=== PATIENT | male | born 1985 | race Caucasian/White ===

== ENCOUNTER 2021-06-22 20:35 | Inpatient (IN) | payer BC, MEDICAID, SELFPAY ==
[~2021-06-22] VITALS: Ht 172.7 cm; Wt 69.6 kg
[2021-06-22] MEDS ORDERED: HYDR100T PO (21:04)
[2021-06-22] MEDS ORDERED: HALO20TA PO (21:04)
[2021-06-22] MEDS ORDERED: CLONI1TA PO (21:04)
[2021-06-22] MEDS ORDERED: HALD100I2 IM (21:04)
[2021-06-22] MEDS ORDERED: TRAZ1TAB14 PO (21:04)
[2021-06-22] MEDS ORDERED: SYMB80INH INH (21:06)
[2021-06-23] VITALS (8 sets, daily range): BP systolic 104–121; BP diastolic 55–81
[2021-06-23] MEDS ORDERED: HYDR1TAB33 PO (00:08)
[2021-06-23] MEDS ORDERED: HALO10TA20 PO (00:08)
[2021-06-23] MEDS ORDERED: CLON0.2T PO (00:08)
[2021-06-23] MEDS ORDERED: TRAZ1TAB14 PO (00:08)
[2021-06-23] MEDS ORDERED: HOME MED LIST COMPLETE! XX SCH (00:10)
[2021-06-23] MEDS ORDERED: MAALOX 30 ML SUSP *UDC PO PRN (02:30)
[2021-06-23] MEDS ORDERED: OLANZapine 5 MG TAB PO PRN (02:30)
[2021-06-23] MEDS ORDERED: ACETAMINOPHEN TAB 650MG DOSE (2X325MG) PO PRN (02:30)
[2021-06-23] MEDS ORDERED: MOM 30ML SUSPENSION UDC PO PRN (02:30)
--- NOTE | 2021-06-23 04:13 | MHIPNPDOC ---
[facility] Progress Note Progress Note DATE OF SERVICE: 06/23/21 Communicated with PSA patient is to be admitted. Patient is a transfer from [place], [place]. Has suicidal ideation with plan to electrocute himself. Vital Signs Vital Signs Date Time Temp Pulse Resp B/P (MAP) Pulse Ox O2 Delivery O2 Flow Rate FiO2 06/23/21 03:25 96.7 56 18 94/53 (67) 96 06/22/21 20:50 Room Air Current Medications Current Medications Medications (Trade) Dose Ordered Sig/Oscar Route PRN Reason Start Time Stop Time Status Last Admin Dose Admin Acetaminophen (Tylenol Tab) 650 mg Q6HP PRN PO HEADACHE or MILD DISCOMFORT 06/23/21 02:30 Al Hydrox/Mg Hydrox/Simethicone (Mylanta) 30 ml Q4HP PRN PO HEARTBURN/INDIGESTION 06/23/21 02:30 Home Med (Home Med List Complete!) ASDIRECTED XX 06/23/21 00:10 06/23/21 00:13 DC Magnesium Hydroxide (Milk Of Magnesia) 30 ml DAILYPRN PRN PO CONSTIPATION 06/23/21 02:30 Olanzapine (ZyPREXA) 5 mg Q6HP PRN PO Anxiety/agitation 06/23/21 02:30 Trazodone HCl (Desyrel) 50 mg QHSP PRN PO INSOMNIA 06/23/21 02:30 Allergies Coded Allergies: Cat Dander (Verified Allergy, Unknown, 06/22/21) FISH (Verified Allergy, Unknown, 06/22/21) POLLEN (Verified Allergy, Unknown, 06/22/21) ANASTACIO MELGAR MD Jun 23, 2021 04:13
[2021-06-23] MEDS ORDERED: PROPRANOLOL 10 MG TAB PO SCH (09:00)
--- NOTE | 2021-06-23 11:35 | MHHPE ---
[facility] HISTORY AND PHYSICAL DATE OF ADMISSION: 06/23/2021 IDENTIFYING DATA: He is a 35-year-old, single, homeless male who was brought from a drug rehabilitation facility in [place], as he was expressing suicidal thoughts. HISTORY OF PRESENT ILLNESS: Patient has been staying in rehabilitation facility for the last two weeks. He developed suicidal thoughts with a plan to electrocute himself. He wanted to put his tongue in an outlet socket. Patient has a long history of mental illness with multiple psychiatric hospitalizations with a diagnosis of bipolar disorder. Also, he has alcohol use disorder. Currently, he complains of depression with severe depressed mood, hopelessness, decreased appetite, low energy. Patient has a history of imelda, wherein he cannot sit still, keeps walking about, racing thoughts, unable to sleep, pressured speech. Patient also has a history of panic disorder. He has been diagnosed with schizoaffective disorder. He has a history of auditory hallucinations, voices making commentary in his head, but they are not commanding in nature. Even when he is not using drugs, he has these hallucinations. He also has paranoid thoughts that people are after him to hurt him. Current stressors are homelessness. CURRENT MEDICATIONS: - Haldol Decanoate 100 mg intramuscular (IM) every four weeks - Haldol 10 mg by mouth at hour of sleep - trazodone 50 mg at bedtime as needed PAST PSYCHIATRIC HISTORY: Patient has history of multiple psychiatric hospitalizations. The first time he saw a psychiatrist was when he was 20 years old. At that time, he was diagnosed with bipolar disorder. He has had more than 20 psychiatric hospitalizations afterwards. The last hospitalization was about two years ago in [place]. SUIDICAL HISTORY: Patient has attempted suicide by jumping out of a window in 2006 and another two attempts by overdosing on pills in 2010 and 2011. There is a history of self-harm by burning, which he has not done for a long time. Denies any history of homicidal ideas. DRUG AND ALCOHOL HISTORY: Patient reports he has a history of alcohol dependence for about the last 15 years, drinks every day. Cannabis use every day. MEDICAL HISTORY: Denies medical problems. FAMILY HISTORY: Unable to elicit, as patient was drowsy. PERSONAL HISTORY: Patient was drowsy, was unable to elicit. MENTAL STATUS EXAMINATION: Casually dressed, partially cooperative. Made poor eye contact. Speech: Rate, rhythm, volume is good. Thought process: Linear and goal-directed. Thought content: Complains of suicidal thoughts without plans. He has auditory hallucinations which are commentaries in his head. He has some paranoid delusions. Insight and judgment is poor. Impulse control is questionable. REVIEW OF SYSTEMS: CONSTITUTIONAL: No fever. No night sweats. HEENT: Negative for epistaxis or headache. RESPIRATORY: No cough or shortness of breath. CARDIOVASCULAR: Negative for chest pain or dyspnea. GASTROINTESTINAL: No abdominal pain. No change in bowel habits. GENITOURIARY: No dysuria. No trouble voiding. NEUROLGOCIAL: Negative for gait disturbances; however, he does have some tremors of his legs. Negative for numbness or tingling. DIAGNOSES: 1. Schizoaffective disorder, bipolar type. 2. Alcohol use disorder. 3. Anxiety disorder, not otherwise specified. PLAN: 1. Admit the patient to inpatient mental health unit (IM). 2. Patient will be placed on suicide precautions and 15 minute checks. 3. Patient will be followed up by the fuels sales representative for medical needs. 4. Patient will be followed up by case management and psychosocial rehabilitation counselor. 5. Patient will participate in appropriate activities, individual, group and milieu therapies. 6. Continue current medications of Haldol Decanoate 100 mg intramuscular (IM) every four weeks, Haldol 10 mg by mouth in the evening. I will place him on Zyprexa Zydis 5 mg every 8 hours as needed for hallucinations. Add propranolol 10 mg three times a day for restlessness. ESTIMATED LENGTH OF STAY: Five to seven days. TIME SPENT: Forty-five minutes. KRISTINA
[2021-06-23 15:16] LABS: HEMATOCRIT 49.6 % (42.0-52.0); HEMOGLOBIN 16.4 g/dl (13.5-17.5); MEAN CORPUSCULAR HEMOGLOBIN 29.6 pg (27.0-33.0); MEAN CORPUSCULAR HGB CONC 33.1 g/dl (32.0-36.5); MEAN CORPUSCULAR VOLUME 89.5 fl (80.0-96.0); PLATELET COUNT, AUTOMATED 373 10^3/uL (150-450); RED BLOOD COUNT 5.54 10^6/uL (4.30-6.10); WHITE BLOOD COUNT 9.1 10^3/uL (4.0-10.0)
[2021-06-23 15:53] LABS: ALBUMIN 4.2 GM/DL (3.2-5.2); ALT/SGPT 32 U/L (12-78); BILIRUBIN,TOTAL 0.8 MG/DL (0.2-1.0); BLOOD UREA NITROGEN 8 MG/DL (7-18); CALCIUM LEVEL 9.4 MG/DL (8.5-10.1); CARBON DIOXIDE LEVEL 29 MEQ/L (21-32); CHLORIDE LEVEL 105 MEQ/L (98-107); CREATININE FOR GFR 1.19 MG/DL (0.70-1.30); FREE THYROXINE INDEX 3.6 % (1.4-3.8); GLOMERULAR FILTRATION RATE > 60.0 (>60); GLUCOSE, FASTING 104 MG/DL (70-100); MAGNESIUM LEVEL 2.2 MG/DL (1.8-2.4); POTASSIUM SERUM 4.6 MEQ/L (3.5-5.1); SODIUM LEVEL 138 MEQ/L (136-145); T UPTAKE 28 % (33-40); TOTAL PROTEIN 7.7 GM/DL (6.4-8.2)
--- NOTE | 2021-06-23 16:42 | ECGEPIP ---
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
[2021-06-23] MEDS: OLANZapine ORAL DISINTEGRATING TAB 5MG PO PRN (18:51)
[2021-06-23] MEDS ORDERED: LORazepam 2 MG TAB PO PRN (19:35)
[2021-06-23] MEDS: THIAMINE 100 MG TAB PO SCH (20:31)
[2021-06-23] MEDS: FOLIC ACID 1 MG TAB PO SCH (20:31)
[2021-06-23] MEDS: traZODone 50 MG TAB PO PRN (20:31)
[2021-06-23] MEDS: MULTIVITAMINS/MINERALS THERAP 1 TAB PO SCH (20:31)
[2021-06-24 06:07] VITALS: BP 121/73
[2021-06-24] MEDS ORDERED: INFLUENZA QUADRIVALENT PF VACCINE 0.5ML SYRINGE IM ONE (09:00)
[2021-06-24] MEDS: THIAMINE 100 MG TAB PO SCH (09:43)
[2021-06-24] MEDS: FOLIC ACID 1 MG TAB PO SCH (09:43)
[2021-06-24] MEDS: MULTIVITAMINS/MINERALS THERAP 1 TAB PO SCH (09:43)
[2021-06-24 09:57] VITALS: BP 111/72
--- NOTE | 2021-06-24 14:36 | MHIPNPDOC ---
[facility] Progress Note Progress Note DATE OF SERVICE: 06/24/21 Subjective:" I still have hallucinations and suicidal thoughts, not as severe, I would like to go to a rehab". : Objective : patient has been staying in rehabilitation facilityfor the last two weeks. He developed suicidal thoughts with a plan to electrocute himself. He wanted to put his tongue in an outlet socket. Patient has a long history of mental illness with multiple psychiatric hospitalizations with a diagnosis of bipolar disorder. Also, he has alcohol use disorder. Currently, he complains of depression with severe depressed mood, hopelessness, decreased appetite, low energy. Patient has a history of imelda, wherein he cannot sit still, keeps walking about, racing thoughts, unable to sleep, pressured speech. Patient also has a history of panic disorder. He has been diagnosed with schizoaffective disorder. He has a history of auditory hallucinations, voices making commentary in his head, but they are not commanding in nature. Even when he is not using drugs, he has these hallucinations. He also has paranoid thoughts that people are after him to hurt him. Current stressors are homelessness. Patient currently, he is less drowsy however complains of hallucinations and some vague suicidal thoughts without plans, He prefers to go to a rehab. CURRENT MEDICATIONS: - Haldol Decanoate 100 mg intramuscular (IM) every four weeks - Haldol 10 mg by mouth at hour of sleep - trazodone 50 mg at bedtime as needed Mental status examination: Dressed in hospital gown, sitting up in his bed reports he still continues to have auditory hallucinations which are not c ommanding in nature He also has suicidal thoughts which are minimal he is alert oriented to time luana ce and person, mood is depressed affect is sad and constricted , thought process linear Goal-directed insight and judgment are poor, Assessment and plan patient continues to be psychotic and has got suicidal thoughts, I would like to place him on, Zyprexa 5 mg at night In addition to Haldol 10 mg at night. Estimated length of stay 4 to 5 days Time spent is 25 minutes Vital Signs Vital Signs Date Time Temp Pulse Resp B/P (MAP) Pulse Ox O2 Delivery O2 Flow Rate FiO2 06/24/21 09:57 82 16 111/72 (85) 97 Room Air 06/24/21 06:07 98.1 Laboratory Data 24H Labs Laboratory Tests 2 06/23/21 14:46: Anion Gap 4L, Glomerular Filtration Rate > 60.0, Calcium Level 9.4, Magnesium Level 2.2, Total Bilirubin 0.8, Aspartate Amino Transf (AST/SGOT) 17, Alanine Aminotransferase (ALT/SGPT) 32, Alkaline Phosphatase 108, Total Protein 7.7, Albumin 4.2, Albumin/Globulin Ratio 1.2, Thyroid Stimulating Hormone (TSH) 1.720, Free Thyroxine Index 3.6, Thyroxine (T4) 13.0H, Triiodothyronine (T3) Uptake 28L 06/23/21 14:47: Nucleated Red Blood Cells % (auto) 0.0 CBC/BMP Laboratory Tests 06/23/21 14:46 06/23/21 14:47 Current Medications Current Medications Medications (Trade) Dose Ordered Sig/Oscar Route PRN Reason Start Time Stop Time Status Last Admin Dose Admin Acetaminophen (Tylenol Tab) 650 mg Q6HP PRN PO HEADACHE or MILD DISCOMFORT 06/23/21 02:30 Al Hydrox/Mg Hydrox/Simethicone (Mylanta) 30 ml Q4HP PRN PO HEARTBURN/INDIGESTION 06/23/21 02:30 Folic Acid (Folic Acid) 1 mg DAILY PO 06/23/21 09:00 06/24/21 09:43 Haloperidol (Haldol) 10 mg QHS PO 06/23/21 21:00 06/23/21 20:31 Home Med (Home Med List Complete!) ASDIRECTED XX 06/23/21 00:10 06/23/21 00:13 DC Lorazepam (Ativan) 2 mg ASDIRECTED PRN PO SEE PROTOCOL 06/23/21 19:35 Magnesium Hydroxide (Milk Of Magnesia) 30 ml DAILYPRN PRN PO CONSTIPATION 06/23/21 02:30 Multivitamins (Theragram-M) 1 tab DAILY PO 06/23/21 09:00 06/24/21 09:43 Olanzapine (ZyPREXA ZYDIS) 5 mg Q6HP PRN PO ANXIETY/AGITATION 06/23/21 09:35 06/23/21 18:51 Olanzapine (ZyPREXA) 5 mg Q6HP PRN PO Anxiety/agitation 06/23/21 02:30 06/23/21 09:38 DC 06/23/21 04:24 Olanzapine (ZyPREXA) 5 mg QHS PO 06/24/21 21:00 UNV Propranolol HCl (Inderal) 10 mg TID PO 06/23/21 09:00 06/23/21 11:45 DC 06/23/21 10:04 Thiamine HCl (Thiamine HCl) 100 mg DAILY PO 06/23/21 09:00 06/24/21 09:43 Trazodone HCl (Desyrel) 50 mg QHSP PRN PO INSOMNIA 06/23/21 02:30 06/23/21 20:31 Allergies Coded Allergies: Cat Dander (Verified Allergy, Unknown, 06/22/21) FISH (Verified Allergy, Unknown, 06/22/21) POLLEN (Verified Allergy, Unknown, 06/22/21) CASEY BLAIR MD Jun 24, 2021 14:36
[2021-06-24 16:00] VITALS: BP 121/77
[2021-06-24] MEDS: OLANZapine ORAL DISINTEGRATING TAB 5MG PO PRN (18:16)
[2021-06-24] MEDS: traZODone 50 MG TAB PO PRN (20:14)
[2021-06-24] MEDS: OLANZapine 5 MG TAB PO SCH (20:14)
[2021-06-25 06:07] VITALS: BP 115/71
[2021-06-25] MEDS: MULTIVITAMINS/MINERALS THERAP 1 TAB PO SCH (09:39)
[2021-06-25] MEDS: THIAMINE 100 MG TAB PO SCH (09:39)
[2021-06-25] MEDS: FOLIC ACID 1 MG TAB PO SCH (09:39)
--- NOTE | 2021-06-25 10:44 | MHIPNPDOC ---
[facility] Progress Note Progress Note DATE OF SERVICE: 06/25/21 Subjective:" Patient denies any hallucinations he denies any suicidal homicidal thoughts However patient is mostly seen laying in his bed. He prefers to go to another rehab. : Objective : patient has been staying in rehabilitation facilityfor the last two weeks. He developed suicidal thoughts with a plan to electrocute himself. He wanted to put his tongue in an outlet socket. Patient has a long history of mental illness with multiple psychiatric hospitalizations with a diagnosis of bipolar disorder. Also, he has alcohol use disorder. Currently, he complains of depression with severe depressed mood, hopelessness, decreased appetite, low energy. Patient has a history of imelda, wherein he cannot sit still, keeps walking about, racing thoughts, unable to sleep, pressured speech. Patient also has a history of panic disorder. He has been diagnosed with schizoaffective disorder. He has a history of auditory hallucinations, voices making commentary in his head, but they are not commanding in nature. Even when he is not using drugs, he has these hallucinations. He also has paranoid thoughts that people are after him to hurt him. Current stressors are homelessness. Patient currently, he is less drowsy however complains of hallucinations and some vague suicidal thoughts without plans, He prefers to go to a rehab. CURRENT MEDICATIONS: - Haldol Decanoate 100 mg intramuscular (IM) every four weeks - Haldol 10 mg by mouth at hour of sleep - trazodone 50 mg at bedtime as needed Mental status examination: Dressed in hospital gown, sitting up in his bed reports he denies any auditory visual hallucinations, denies any suicidal homicidal ideas. alert oriented to time place and person, mood is depressed affect is sad and constricted , thought process linear Goal-directed insight and judgment are poor, Assessment and plan patient continues to be psychotic and has got suicidal thoughts, I would like to place him on, Zyprexa 5 mg at night In addition to Haldol 10 mg at night. Estimated length of stay 4 to 5 days Time spent is 25 minutes Vital Signs Vital Signs Date Time Temp Pulse Resp B/P (MAP) Pulse Ox O2 Delivery O2 Flow Rate FiO2 06/25/21 06:07 97.3 81 16 115/71 (86) 99 Room Air Current Medications Current Medications Medications (Trade) Dose Ordered Sig/Oscar Route PRN Reason Start Time Stop Time Status Last Admin Dose Admin Acetaminophen (Tylenol Tab) 650 mg Q6HP PRN PO HEADACHE or MILD DISCOMFORT 06/23/21 02:30 Al Hydrox/Mg Hydrox/Simethicone (Mylanta) 30 ml Q4HP PRN PO HEARTBURN/INDIGESTION 06/23/21 02:30 Folic Acid (Folic Acid) 1 mg DAILY PO 06/23/21 09:00 06/25/21 09:39 Haloperidol (Haldol) 10 mg QHS PO 06/23/21 21:00 06/24/21 20:14 Home Med (Home Med List Complete!) ASDIRECTED XX 06/23/21 00:10 06/23/21 00:13 DC Lorazepam (Ativan) 2 mg ASDIRECTED PRN PO SEE PROTOCOL 06/23/21 19:35 Magnesium Hydroxide (Milk Of Magnesia) 30 ml DAILYPRN PRN PO CONSTIPATION 06/23/21 02:30 Multivitamins (Theragram-M) 1 tab DAILY PO 06/23/21 09:00 06/25/21 09:39 Olanzapine (ZyPREXA ZYDIS) 5 mg Q6HP PRN PO ANXIETY/AGITATION 06/23/21 09:35 06/24/21 18:16 Olanzapine (ZyPREXA) 5 mg Q6HP PRN PO Anxiety/agitation 06/23/21 02:30 06/23/21 09:38 DC 06/23/21 04:24 Olanzapine (ZyPREXA) 5 mg QHS PO 06/24/21 21:00 06/24/21 20:14 Propranolol HCl (Inderal) 10 mg TID PO 06/23/21 09:00 06/23/21 11:45 DC 06/23/21 10:04 Thiamine HCl (Thiamine HCl) 100 mg DAILY PO 06/23/21 09:00 06/25/21 09:39 Trazodone HCl (Desyrel) 50 mg QHSP PRN PO INSOMNIA 06/23/21 02:30 06/24/21 20:14 Allergies Coded Allergies: Cat Dander (Verified Allergy, Unknown, 06/22/21) FISH (Verified Allergy, Unknown, 06/22/21) POLLEN (Verified Allergy, Unknown, 06/22/21) CASEY BLAIR MD Jun 25, 2021 10:44
[2021-06-25] MEDS ORDERED: BENZTROPINE 0.5 MG TAB PO PRN (14:15)
[2021-06-25] MEDS ORDERED: BENZTROPINE 0.5 MG TAB PO ONE (14:15)
[2021-06-25] MEDS ORDERED: BENZTROPINE 1 MG TAB PO ONE (14:30)
[2021-06-25 16:35] VITALS: BP 132/79
[2021-06-25] MEDS: BENZTROPINE 0.5 MG TAB PO SCH (20:29)
[2021-06-25] MEDS: OLANZapine 5 MG TAB PO SCH (20:29)
[2021-06-25] MEDS: traZODone 50 MG TAB PO PRN (20:29)
[2021-06-25] MEDS ORDERED: BENZTROPINE 0.5 MG TAB PO SCH (21:00)
[2021-06-26 06:15] VITALS: BP 104/56
[2021-06-26] MEDS: BENZTROPINE 0.5 MG TAB PO SCH (09:30)
[2021-06-26] MEDS: FOLIC ACID 1 MG TAB PO SCH (09:30)
[2021-06-26] MEDS: MULTIVITAMINS/MINERALS THERAP 1 TAB PO SCH (09:30)
[2021-06-26] MEDS: THIAMINE 100 MG TAB PO SCH (09:30)
--- NOTE | 2021-06-26 09:57 | MHIPNPDOC ---
[facility] Progress Note Progress Note DATE OF SERVICE: 06/26/21 Subjective:" Patient denies any hallucinations he denies any suicidal homicidal thoughts However patient is mostly seen laying in his bed. He prefers to go to another rehab. Patient had akathisia, he was placed on Cogentin 1 mg twice daily reports he is better he is not restless. : Objective : patient has been staying in rehabilitation facilityfor the last two weeks. He developed suicidal thoughts with a plan to electrocute himself. He wanted to put his tongue in an outlet socket. Patient has a long history of mental illness with multiple psychiatric hospitalizations with a diagnosis of bipolar disorder. Also, he has alcohol use disorder. Currently, he complains of depression with severe depressed mood, hopelessness, decreased appetite, low energy. Patient has a history of imelda, wherein he cannot sit still, keeps walking about, racing thoughts, unable to sleep, pressured speech. Patient also has a history of panic disorder. He has been diagnosed with schizoaffective disorder. He has a history of auditory hallucinations, voices making commentary in his head, but they are not commanding in nature. Even when he is not using drugs, he has these hallucinations. He also has paranoid thoughts that people are after him to hurt him. Current stressors are homelessness. Patient currently, he is less drowsy however complains of hallucinations and some vague suicidal thoughts without plans, He prefers to go to a rehab. CURRENT MEDICATIONS: - Haldol Decanoate 100 mg intramuscular (IM) every four weeks - Haldol 10 mg by mouth at hour of sleep - trazodone 50 mg at bedtime as needed Mental status examination: Dressed in hospital gown, sitting up in his bed reports he denies any auditory visual hallucinations, denies any suicidal homicidal ideas. alert oriented to time place and person, mood is depressed affect is sad and constricted , thought process linear Goal-directed insight and judgment are poor, Assessment and plan patient continues to be psychotic and has got suicidal thoughts, I would like to place him on, Zyprexa 5 mg at night In addition to Haldol 10 mg at night. Cogentin 1 mg twice daily, as akathisia was noted yesterday. Plan is to go to a rehab. Estimated length of stay 4 to 5 days Time spent is 25 minutes Vital Signs Vital Signs Date Time Temp Pulse Resp B/P (MAP) Pulse Ox O2 Delivery O2 Flow Rate FiO2 06/26/21 06:15 98.1 52 20 104/56 (72) 97 Room Air Current Medications Current Medications Medications (Trade) Dose Ordered Sig/Oscar Route PRN Reason Start Time Stop Time Status Last Admin Dose Admin Acetaminophen (Tylenol Tab) 650 mg Q6HP PRN PO HEADACHE or MILD DISCOMFORT 06/23/21 02:30 Al Hydrox/Mg Hydrox/Simethicone (Mylanta) 30 ml Q4HP PRN PO HEARTBURN/INDIGESTION 06/23/21 02:30 Benztropine Mesylate (Cogentin) 0.5 mg BID PO 06/25/21 21:00 06/25/21 14:18 DC Benztropine Mesylate (Cogentin) 0.5 mg BID PRN PO EPS 06/25/21 14:15 06/25/21 14:15 DC Benztropine Mesylate (Cogentin) 1 mg BID PO 06/25/21 21:00 06/26/21 09:30 Folic Acid (Folic Acid) 1 mg DAILY PO 06/23/21 09:00 06/26/21 09:30 Haloperidol (Haldol) 10 mg QHS PO 06/23/21 21:00 06/25/21 20:28 Home Med (Home Med List Complete!) ASDIRECTED XX 06/23/21 00:10 06/23/21 00:13 DC Lorazepam (Ativan) 2 mg ASDIRECTED PRN PO SEE PROTOCOL 06/23/21 19:35 Magnesium Hydroxide (Milk Of Magnesia) 30 ml DAILYPRN PRN PO CONSTIPATION 06/23/21 02:30 Multivitamins (Theragram-M) 1 tab DAILY PO 06/23/21 09:00 06/26/21 09:30 Olanzapine (ZyPREXA ZYDIS) 5 mg Q6HP PRN PO ANXIETY/AGITATION 06/23/21 09:35 06/24/21 18:16 Olanzapine (ZyPREXA) 5 mg Q6HP PRN PO Anxiety/agitation 06/23/21 02:30 06/23/21 09:38 DC 06/23/21 04:24 Olanzapine (ZyPREXA) 5 mg QHS PO 06/24/21 21:00 06/25/21 20:29 Propranolol HCl (Inderal) 10 mg TID PO 06/23/21 09:00 06/23/21 11:45 DC 06/23/21 10:04 Thiamine HCl (Thiamine HCl) 100 mg DAILY PO 06/23/21 09:00 06/26/21 09:30 Trazodone HCl (Desyrel) 50 mg QHSP PRN PO INSOMNIA 06/23/21 02:30 06/25/21 20:29 Allergies Coded Allergies: Cat Dander (Verified Allergy, Unknown, 06/22/21) FISH (Verified Allergy, Unknown, 06/22/21) POLLEN (Verified Allergy, Unknown, 06/22/21) CASEY BLAIR MD Jun 26, 2021 09:57
[2021-06-26] MEDS ORDERED: HALOPERIDOL DECANOATE 100 MG/ML VIAL (J1631) IM ONE (15:10)
[2021-06-26 16:44] VITALS: BP 112/68
[2021-06-26] MEDS: traZODone 50 MG TAB PO PRN (20:21)
[2021-06-26] MEDS: BENZTROPINE 2 MG TAB PO SCH (20:22)
[2021-06-27 06:48] VITALS: BP 111/69
[2021-06-27] MEDS: MULTIVITAMINS/MINERALS THERAP 1 TAB PO SCH (09:32)
[2021-06-27] MEDS: THIAMINE 100 MG TAB PO SCH (09:32)
[2021-06-27] MEDS: FOLIC ACID 1 MG TAB PO SCH (09:32)
[2021-06-27] MEDS: BENZTROPINE 2 MG TAB PO SCH ×2 (09:32→21:06)
--- NOTE | 2021-06-27 11:26 | MHIPNPDOC ---
[facility] Progress Note Progress Note DATE OF SERVICE: 06/27/21 HISTORY: Reason for Admission: Patient is a 35-year-old, Single, Homeless male who was brought on a DCS from [facility] in [place], as he was expressing suicidal thoughts. Patient has been staying in rehabilitation facility for the last two weeks. He developed suicidal thoughts with a plan to electrocute himself. He wanted to put his tongue in an outlet socket. Patient has a long history of mental illness with multiple psychiatric hospitalizations with a diagnosis of bipolar disorder. Also, he has alcohol use disorder. Currently, he complains of depression with severe depressed mood, hopelessness, decreased appetite, and low energy. Patient has a history of imelda, wherein he cannot sit still, keeps walking about, racing thoughts, unable to sleep, pressured speech. Patient also has a history of panic disorder. He has been diagnosed with schizoaffective disorder. PER ED REPORT: Pt states that he has been in rehab/detox & staff from the rehab took him to the ED because he was having SI. Pt admits to SI with a plan for electrocution (stick his tongue in an outlet). Pt reports a Hx of one suicide attempt via stabbing himself in the stomach "years ago." Per notes from [facility], pt. had a suicide attempt via jumping out of a window in 2006 & two attempts via OD, one in 2010 & one in 2011. Pt reports a Hx of self- harm via burning, but states he has not done it in years. Pt denies HI. Pt reports AH of a commentary running through his head asking him questions. He states that the AH do not tell him to hurt himself or anyone else. Pt c/o depressed mood, anxiety, poor concentration, erratic energy levels, erratic sleep, & erratic appetite. Pt appears highly anxious, with arms & legs shaking. Main stressors are his alcohol use, being in rehab, fights with family members, being homeless, & he is not allowed to see his children much. Pt has a Hx of bipolar d/o, schizoaffective d/o, schizophrenia, depression, & anxiety with no Hx of admissions. Pt reports that he has OP tx in [place]. Pt reports daily alcohol & MJ use. His tox screen was positive for cannabis. Reports feeling A nxious, Depressed and Hopeless/Helpless VITAL SIGNS: See below. CURRENT MEDICATIONS: See below. MENTAL STATUS EXAMINATION: Patient is a 35-year-old, Single, Homeless male who was brought from a drug rehabilitation facility in [place], as he was expressing suicidal thoughts. Speech: Is spontaneous, normal speech, tone and volume Language skills are intact Thought processes including: Linear, coherent Thought content: Reporting mild depression and anxiety, denies suicidal and homicidal ideations Abstract reasoning, and computation: Fair. Description of associations: Denies Description of abnormal or psychotic thoughts: Denies Judgment: Fair Insight: Fair Orientation: Alert and oriented x 3 Recent and remote memory: Intact Attention span and concentration: Average Language: Fair Fund of knowledge: Average Mood: Mildly depressed Affect: Constricted DIAGNOSES: Schizoaffective Disorder, Bipolar Type Nicotine Use Disorder Alcohol Use Disorder Cannabis Use Disorder Anxiety Disorder ASSESSMENT: Patient found out in the hallway visible in the milieu. He is mildly disheveled his hygiene and grooming is fair. He reports a decrease in depression and anxiety. Reports that he has no suicidal ideation during the interview. He denies auditory visual and tactile hallucinations. He reports that he is attending groups and that he sees the benefits and these therapies. He was mildly engaged in the individual session with this provider. Feels that he can be discharge this week when [facility] He states that he needs a clean urine drug screen for his admission. MANAGEMENT PLAN: Continue all medications and supportive therapy. [facility]. Possible discharge 1 to 2 days. TIME SPENT: 25 minutes. Vital Signs Vital Signs Date Time Temp Pulse Resp B/P (MAP) Pulse Ox O2 Delivery O2 Flow Rate FiO2 06/27/21 06:48 98.8 53 18 111/69 (83) 98 Room Air Current Medications Current Medications Medications (Trade) Dose Ordered Sig/Oscar Route PRN Reason Start Time Stop Time Status Last Admin Dose Admin Acetaminophen (Tylenol Tab) 650 mg Q6HP PRN PO HEADACHE or MILD DISCOMFORT 06/23/21 02:30 Al Hydrox/Mg Hydrox/Simethicone (Mylanta) 30 ml Q4HP PRN PO HEARTBURN/INDIGESTION 06/23/21 02:30 Benztropine Mesylate (Cogentin) 0.5 mg BID PO 06/25/21 21:00 06/25/21 14:18 DC Benztropine Mesylate (Cogentin) 0.5 mg BID PRN PO EPS 06/25/21 14:15 06/25/21 14:15 DC Benztropine Mesylate (Cogentin) 1 mg BID PO 06/25/21 21:00 06/26/21 15:13 DC 06/26/21 09:30 Benztropine Mesylate (Cogentin) 2 mg BID PO 06/26/21 21:00 06/27/21 09:32 Folic Acid (Folic Acid) 1 mg DAILY PO 06/23/21 09:00 06/27/21 09:32 Haloperidol (Haldol) 10 mg QHS PO 06/23/21 21:00 06/26/21 20:22 Home Med (Home Med List Complete!) ASDIRECTED XX 06/23/21 00:10 06/23/21 00:13 DC Lorazepam (Ativan) 2 mg ASDIRECTED PRN PO SEE PROTOCOL 06/23/21 19:35 Magnesium Hydroxide (Milk Of Magnesia) 30 ml DAILYPRN PRN PO CONSTIPATION 06/23/21 02:30 Multivitamins (Theragram-M) 1 tab DAILY PO 06/23/21 09:00 06/27/21 09:32 Olanzapine (ZyPREXA ZYDIS) 5 mg Q6HP PRN PO ANXIETY/AGITATION 06/23/21 09:35 06/26/21 15:13 DC 06/24/21 18:16 Olanzapine (ZyPREXA) 5 mg Q6HP PRN PO Anxiety/agitation 06/23/21 02:30 06/23/21 09:38 DC 06/23/21 04:24 Olanzapine (ZyPREXA) 5 mg QHS PO 06/24/21 21:00 06/26/21 15:13 DC 06/25/21 20:29 Propranolol HCl (Inderal) 10 mg TID PO 06/23/21 09:00 06/23/21 11:45 DC 06/23/21 10:04 Thiamine HCl (Thiamine HCl) 100 mg DAILY PO 06/23/21 09:00 06/27/21 09:32 Trazodone HCl (Desyrel) 50 mg QHSP PRN PO INSOMNIA 06/23/21 02:30 06/26/21 20:21 Allergies Coded Allergies: Cat Dander (Verified Allergy, Unknown, 06/22/21) FISH (Verified Allergy, Unknown, 06/22/21) POLLEN (Verified Allergy, Unknown, 06/22/21) KAYCEE DAMON NP Jun 27, 2021 11:26
[2021-06-27 16:08] LABS: Lyme Disease IgG/IgM Antibodie <0.91 ISR (0.00-0.90); Lyme Disease IgM Ab Quantitati <0.80 index (0.00-0.79)
[2021-06-27 17:56] VITALS: BP 131/61
[2021-06-27] MEDS: traZODone 50 MG TAB PO PRN (21:06)
[2021-06-28 06:37] VITALS: BP 115/68
[2021-06-28] MEDS: BENZTROPINE 2 MG TAB PO SCH ×2 (08:00→20:19)
[2021-06-28] MEDS: FOLIC ACID 1 MG TAB PO SCH (08:00)
[2021-06-28] MEDS: MULTIVITAMINS/MINERALS THERAP 1 TAB PO SCH (08:00)
[2021-06-28] MEDS: THIAMINE 100 MG TAB PO SCH (08:00)
--- NOTE | 2021-06-28 12:35 | MHIPNPDOC ---
[facility] Progress Note Progress Note DATE OF SERVICE: 06/28/21 HISTORY: Reason for Admission: Patient is a 35-year-old, Single, Homeless male who was brought on a DCS from [facility] in [place], as he was expressing suicidal thoughts. Patient has been staying in rehabilitation facility for the last two weeks. He developed suicidal thoughts with a plan to electrocute himself. He wanted to put his tongue in an outlet socket. Patient has a long history of mental illness with multiple psychiatric hospitalizations with a diagnosis of bipolar disorder. Also, he has alcohol use disorder. Currently, he complains of depression with severe depressed mood, hopelessness, decreased appetite, and low energy. Patient has a history of imelda, wherein he cannot sit still, keeps walking about, racing thoughts, unable to sleep, pressured speech. Patient also has a history of panic disorder. He has been diagnosed with schizoaffective disorder. PER ED REPORT: Pt states that he has been in rehab/detox & staff from the rehab took him to the ED because he was having SI. Pt admits to SI with a plan for electrocution (stick his tongue in an outlet). Pt reports a Hx of one suicide attempt via stabbing himself in the stomach "years ago." Per notes from [facility], pt. had a suicide attempt via jumping out of a window in 2006 & two attempts via OD, one in 2010 & one in 2011. Pt reports a Hx of self- harm via burning, but states he has not done it in years. Pt denies HI. Pt reports AH of a commentary running through his head asking him questions. He states that the AH do not tell him to hurt himself or anyone else. Pt c/o depressed mood, anxiety, poor concentration, erratic energy levels, erratic sleep, & erratic appetite. Pt appears highly anxious, with arms & legs shaking. Main stressors are his alcohol use, being in rehab, fights with family members, being homeless, & he is not allowed to see his children much. Pt has a Hx of bipolar d/o, schizoaffective d/o, schizophrenia, depression, & anxiety with no Hx of admissions. Pt reports that he has OP tx in [place]. Pt reports daily alcohol & MJ use. His tox screen was positive for cannabis. Reports feeling A nxious, Depressed and Hopeless/Helpless VITAL SIGNS: See below. CURRENT MEDICATIONS: See below. MENTAL STATUS EXAMINATION: Patient is a 35-year-old, Single, Homeless male who was brought from a drug rehabilitation facility in [place], as he was expressing suicidal thoughts. Speech: Is spontaneous, normal speech, tone and volume Language skills are intact Thought processes including: Linear, coherent Thought content: Reporting decrease in depression and but increase in anxiety, denies suicidal and homicidal ideations Abstract reasoning, and computation: Fair. Description of associations: Denies Description of abnormal or psychotic thoughts: Denies Judgment: Fair Insight: Fair Orientation: Alert and oriented x 3 Recent and remote memory: Intact Attention span and concentration: Average Language: Fair Fund of knowledge: Average Mood: Reports "ok" less depressed Affect: Anxious DIAGNOSES: Schizoaffective Disorder, Bipolar Type Nicotine Use Disorder Alcohol Use Disorder Cannabis Use Disorder Unspecified Anxiety Disorder ASSESSMENT: Patient reports that he is not having suicidal thoughts currently. reports a decreased in depression but reports an increase in anxiety. States that he is afraid that he will be sent back to [place] without services, and he will be ultimately suicidal again as he is homeless and does not have any of his belongings at this point. He is hoping to return [facility] but states he needs to have a "clean" drug screen. Throughout his interview, patient appeared quite restless, bouncing both legs up and down and wringing his hands. Patient presented very anxious in his interview today. "I do not want to leave without a plan, I am afraid I will end up in the ED again." MANAGEMENT PLAN: Continue all medications and supportive therapy. [facility]. Possible discharge tomorrow. TIME SPENT: 25 minutes. Vital Signs Vital Signs Date Time Temp Pulse Resp B/P (MAP) Pulse Ox O2 Delivery O2 Flow Rate FiO2 06/28/21 06:37 97.8 50 14 115/68 (84) 96 Room Air Current Medications Current Medications Medications (Trade) Dose Ordered Sig/Oscar Route PRN Reason Start Time Stop Time Status Last Admin Dose Admin Acetaminophen (Tylenol Tab) 650 mg Q6HP PRN PO HEADACHE or MILD DISCOMFORT 06/23/21 02:30 Al Hydrox/Mg Hydrox/Simethicone (Mylanta) 30 ml Q4HP PRN PO HEARTBURN/INDIGESTION 06/23/21 02:30 Benztropine Mesylate (Cogentin) 0.5 mg BID PO 06/25/21 21:00 06/25/21 14:18 DC Benztropine Mesylate (Cogentin) 0.5 mg BID PRN PO EPS 06/25/21 14:15 06/25/21 14:15 DC Benztropine Mesylate (Cogentin) 1 mg BID PO 06/25/21 21:00 06/26/21 15:13 DC 06/26/21 09:30 Benztropine Mesylate (Cogentin) 2 mg BID PO 06/26/21 21:00 06/28/21 08:00 Folic Acid (Folic Acid) 1 mg DAILY PO 06/23/21 09:00 06/28/21 08:00 Haloperidol (Haldol) 10 mg QHS PO 06/23/21 21:00 06/27/21 21:06 Home Med (Home Med List Complete!) ASDIRECTED XX 06/23/21 00:10 06/23/21 00:13 DC Lorazepam (Ativan) 2 mg ASDIRECTED PRN PO SEE PROTOCOL 06/23/21 19:35 Magnesium Hydroxide (Milk Of Magnesia) 30 ml DAILYPRN PRN PO CONSTIPATION 06/23/21 02:30 Miscellaneous (Unresolved Clarification Entry) SEE LABEL COMMENTS DAILY XX 06/28/21 09:00 Multivitamins (Theragram-M) 1 tab DAILY PO 06/23/21 09:00 06/28/21 08:00 Olanzapine (ZyPREXA ZYDIS) 5 mg Q6HP PRN PO ANXIETY/AGITATION 06/23/21 09:35 06/26/21 15:13 DC 06/24/21 18:16 Olanzapine (ZyPREXA) 5 mg Q6HP PRN PO Anxiety/agitation 06/23/21 02:30 06/23/21 09:38 DC 06/23/21 04:24 Olanzapine (ZyPREXA) 5 mg QHS PO 06/24/21 21:00 06/26/21 15:13 DC 06/25/21 20:29 Propranolol HCl (Inderal) 10 mg TID PO 06/23/21 09:00 06/23/21 11:45 DC 06/23/21 10:04 Thiamine HCl (Thiamine HCl) 100 mg DAILY PO 06/23/21 09:00 06/28/21 08:00 Trazodone HCl (Desyrel) 50 mg QHSP PRN PO INSOMNIA 06/23/21 02:30 06/27/21 21:06 Allergies Coded Allergies: Cat Dander (Verified Allergy, Unknown, 06/22/21) FISH (Verified Allergy, Unknown, 06/22/21) POLLEN (Verified Allergy, Unknown, 06/22/21) KAYCEE DAMON NP Jun 28, 2021 12:35
[2021-06-28 13:48] LABS: RSV AMPLIFICATION NEGATIVE (NEGATIVE)
[2021-06-28] MEDS ORDERED: hydrOXYzine 50 MG TAB PO STA (16:17)
[2021-06-28] MEDS: traZODone 50 MG TAB PO PRN (20:19)
[2021-06-29 06:04] VITALS: BP 106/65
[2021-06-29] MEDS: FOLIC ACID 1 MG TAB PO SCH (09:32)
[2021-06-29] MEDS: THIAMINE 100 MG TAB PO SCH (09:32)
[2021-06-29] MEDS: BENZTROPINE 2 MG TAB PO SCH ×2 (09:32→20:11)
[2021-06-29] MEDS: MULTIVITAMINS/MINERALS THERAP 1 TAB PO SCH (09:32)
--- NOTE | 2021-06-29 10:21 | MHIPNPDOC ---
[facility] Progress Note Vital Signs Vital Signs Date Time Temp Pulse Resp B/P (MAP) Pulse Ox O2 Delivery O2 Flow Rate FiO2 06/29/21 06:04 97.6 50 16 106/65 (79) 97 Room Air Laboratory Data 24H Labs Laboratory Tests 2 06/28/21 13:00: Coronavirus (COVID-19)(PCR) NEGATIVE, Influenza Type A (RT-PCR) NEGATIVE, Influenza Type B (RT-PCR) NEGATIVE, Respiratory Syncytial Virus (PCR) NEGATIVE 06/29/21 09:25: Current Medications Current Medications Medications (Trade) Dose Ordered Sig/Oscar Route PRN Reason Start Time Stop Time Status Last Admin Dose Admin Acetaminophen (Tylenol Tab) 650 mg Q6HP PRN PO HEADACHE or MILD DISCOMFORT 06/23/21 02:30 Al Hydrox/Mg Hydrox/Simethicone (Mylanta) 30 ml Q4HP PRN PO HEARTBURN/INDIGESTION 06/23/21 02:30 Benztropine Mesylate (Cogentin) 0.5 mg BID PO 06/25/21 21:00 06/25/21 14:18 DC Benztropine Mesylate (Cogentin) 0.5 mg BID PRN PO EPS 06/25/21 14:15 06/25/21 14:15 DC Benztropine Mesylate (Cogentin) 1 mg BID PO 06/25/21 21:00 06/26/21 15:13 DC 06/26/21 09:30 Benztropine Mesylate (Cogentin) 2 mg BID PO 06/26/21 21:00 06/29/21 09:32 Folic Acid (Folic Acid) 1 mg DAILY PO 06/23/21 09:00 06/29/21 09:32 Haloperidol (Haldol) 10 mg QHS PO 06/23/21 21:00 06/28/21 20:19 Home Med (Home Med List Complete!) ASDIRECTED XX 06/23/21 00:10 06/23/21 00:13 DC Hydroxyzine HCl (Atarax) 50 mg STAT STAT PO 06/28/21 16:17 06/28/21 16:20 DC 06/28/21 17:09 Lorazepam (Ativan) 2 mg ASDIRECTED PRN PO SEE PROTOCOL 06/23/21 19:35 Cancel Magnesium Hydroxide (Milk Of Magnesia) 30 ml DAILYPRN PRN PO CONSTIPATION 06/23/21 02:30 Miscellaneous (Unresolved Clarification Entry) SEE LABEL COMMENTS DAILY XX 06/28/21 09:00 Cancel Multivitamins (Theragram-M) 1 tab DAILY PO 06/23/21 09:00 06/29/21 09:32 Olanzapine (ZyPREXA ZYDIS) 5 mg Q6HP PRN PO ANXIETY/AGITATION 06/23/21 09:35 06/26/21 15:13 DC 06/24/21 18:16 Olanzapine (ZyPREXA) 5 mg Q6HP PRN PO Anxiety/agitation 06/23/21 02:30 06/23/21 09:38 DC 06/23/21 04:24 Olanzapine (ZyPREXA) 5 mg QHS PO 06/24/21 21:00 06/26/21 15:13 DC 06/25/21 20:29 Propranolol HCl (Inderal) 10 mg TID PO 06/23/21 09:00 06/23/21 11:45 DC 06/23/21 10:04 Thiamine HCl (Thiamine HCl) 100 mg DAILY PO 06/23/21 09:00 06/29/21 09:32 Trazodone HCl (Desyrel) 50 mg QHSP PRN PO INSOMNIA 06/23/21 02:30 06/28/21 20:19 Allergies Coded Allergies: Cat Dander (Verified Allergy, Unknown, 06/22/21) FISH (Verified Allergy, Unknown, 06/22/21) POLLEN (Verified Allergy, Unknown, 06/22/21) KAYCEE DAMON NP Jun 29, 2021 10:21
[2021-06-29 10:24] LABS: AMPHETAMINES LEVEL URINE NEGATIVE (NEGATIVE); BARBITURATES URINE NEGATIVE (NEGATIVE); BENZODIAZEPINES URINE NEGATIVE (NEGATIVE); CANNABINOIDS URINE POSITIVE (NEGATIVE); COCAINE METABOLITE URINE NEGATIVE (NEGATIVE); METHADONE URINE NEGATIVE (NEGATIVE); OPIATES URINE NEGATIVE (NEGATIVE); PHENCYCLIDINE URINE NEGATIVE (NEGATIVE)
[2021-06-29 18:20] VITALS: BP 112/65
[2021-06-29] MEDS: traZODone 50 MG TAB PO PRN (20:11)
[2021-06-30 06:29] VITALS: BP 92/60
[2021-06-30] MEDS: BENZTROPINE 2 MG TAB PO SCH (10:00)
[2021-06-30] MEDS: THIAMINE 100 MG TAB PO SCH (10:00)
[2021-06-30] MEDS: MULTIVITAMINS/MINERALS THERAP 1 TAB PO SCH (10:00)
[2021-06-30] MEDS: FOLIC ACID 1 MG TAB PO SCH (10:00)
[2021-06-30] MEDS ORDERED: hydrOXYzine 50 MG TAB PO PRN (11:00)
[2021-06-30] MEDS ORDERED: LORazepam 1 MG TAB PO ONE (11:00)
[2021-06-30] MEDS ORDERED: TRAZ-252 PO (11:30)
[2021-06-30] MEDS ORDERED: HALO10TA20 PO (11:30)
[2021-06-30] MEDS ORDERED: BENZ2TAB5 PO (11:30)
[2021-06-30] MEDS ORDERED: HYDR50TA70 PO (11:30)
--- NOTE | 2021-06-30 11:33 | MHIPNPDOC ---
[facility] Progress Note Progress Note DATE OF SERVICE: 06/29/21 HISTORY: Patient is a 35-year-old, Single, Homeless male who was brought on a DCS from [facility] in [place], as he was expressing suicidal thoughts. Patient has been staying in rehabilitation facility for the last two weeks. He developed suicidal thoughts with a plan to electrocute himself. He wanted to put his tongue in an outlet socket. Patient has a long history of mental illness with multiple psychiatric hospitalizations with a diagnosis of bipolar disorder. Also, he has alcohol use disorder. Currently, he complains of depression with severe depressed mood, hopelessness, decreased appetite, and low energy. Patient has a history of imelda, wherein he cannot sit still, keeps walking about, racing thoughts, unable to sleep, pressured speech. Patient also has a history of panic disorder. He has been diagnosed with schizoaffective disorder. PER ED REPORT: Pt states that he has been in rehab/detox & staff from the rehab took him to the ED because he was having SI. Pt admits to with a plan for electrocution (stick his tongue in an outlet). Pt reports a Hx of one suicide attempt via stabbing himself in the stomach "years ago." Per notes from [facility], pt. had a suicide attempt via jumping out of a window in 2006 & two attempts via OD, one in 2010 & one in 2011. Pt reports a Hx of self- harm via burning, but states he has not done it in years. Pt denies HI. Pt reports AH of a commentary running through his head asking him questions. He states that the AH do not tell him to hurt himself or anyone else. Pt c/o depressed mood, anxiety, poor concentration, erratic energy levels, erratic sleep, & erratic appetite. Pt appears highly anxious, with arms & legs shaking. Main stressors are his alcohol use, being in rehab, fights with family members, being homeless, & he is not allowed to see his children much. Pt has a Hx of bipolar d/o, schizoaffective d/o, schizophrenia, depression, & anxiety with no Hx of admissions. Pt reports that he has OP tx in [place]. Pt reports daily alcohol & MJ use. His tox screen was positive for cannabis. Reports feeling Anxious, Depressed and Hopeless/Helpless VITAL SIGNS: See below. CURRENT MEDICATIONS: See below. MENTAL STATUS EXAMINATION: Patient is a 35-year-old, Single, Homeless male who was brought from a drug rehabilitation facility in [place], as he was expressing suicidal thoughts. Patient has poor hygiene, hair was unkempt, clothes has not been washed and he was disheveled. Patient made poor eye contact during interview. Speech: Is normal speech, tone and low volume, with minimal responses. Language skills are intact Thought processes including: Linear, coherent Thought content: Reporting decrease in depression and but increase in anxiety, denies suicidal and homicidal ideations Abstract reasoning, and computation: Fair. Description of associations: Denies Description of abnormal or psychotic thoughts: Denies Judgment: Fair Insight: Fair Orientation: Alert and oriented x 3 Recent and remote memory: Intact Attention span and concentration: Average Language: Fair Fund of knowledge: Average Mood: Reports "ok" less depressed Affect: Anxious DIAGNOSES: Schizoaffective Disorder, Bipolar Type Nicotine Use Disorder Alcohol Use Disorder Cannabis Use Disorder Unspecified Anxiety Disorder ASSESSMENT: Patient found sleeping, agreeable to interview. Patient presented with poor hygiene, hair was unkempt, and clothes have not been washed. Patient demonstrated restless behavior during interview to include bouncing his legs up and down, shaking hands, and sitting on his hands. When asked if he had any thoughts of suicide patient stated "I'm not suicidal" but alludes to suicidal thinking based on being discharge without housing. Patient stated "not still suicidal as long as I have a place to go, I think I will be fine." Discussed with patient hes housing options in [place] - [facility] ([facility]), [facility] (no answers and there at 18 people on waiting list). Provider called [facility] for other shelters or emergency housing options in the [place] area, they suggested calling [employer] and [employer]. Patient has a court date ne xt week (07/04/2021), suggested getting hotel/motel prior to court dates patient stated he has a "rep payee from [employer] and does not have ready access of funds." Unable to discharge due to unsafe discharge plan. Discharge patient would most likely return to an ER immediately after discharge. Discharge planning is working on finding housing, patient is aware that ultimately he may have to return to [facility] for emergency housing. MANAGEMENT PLAN: Continue all medications and supportive therapy. Discharge pending. TIME SPENT: 25 minutes. Vital Signs Vital Signs Date Time Temp Pulse Resp B/P (MAP) Pulse Ox O2 Delivery O2 Flow Rate FiO2 06/30/21 06:29 98.1 50 16 92/60 (71) 97 Room Air Current Medications Current Medications Medications (Trade) Dose Ordered Sig/Oscar Route PRN Reason Start Time Stop Time Status Last Admin Dose Admin Acetaminophen (Tylenol Tab) 650 mg Q6HP PRN PO HEADACHE or MILD DISCOMFORT 06/23/21 02:30 Al Hydrox/Mg Hydrox/Simethicone (Mylanta) 30 ml Q4HP PRN PO HEARTBURN/INDIGESTION 06/23/21 02:30 Benztropine Mesylate (Cogentin) 0.5 mg BID PO 06/25/21 21:00 06/25/21 14:18 DC Benztropine Mesylate (Cogentin) 0.5 mg BID PRN PO EPS 06/25/21 14:15 06/25/21 14:15 DC Benztropine Mesylate (Cogentin) 1 mg BID PO 06/25/21 21:00 06/26/21 15:13 DC 06/26/21 09:30 Benztropine Mesylate (Cogentin) 2 mg BID PO 06/26/21 21:00 06/30/21 10:00 Folic Acid (Folic Acid) 1 mg DAILY PO 06/23/21 09:00 06/30/21 10:00 Haloperidol (Haldol) 10 mg QHS PO 06/23/21 21:00 06/29/21 20:11 Home Med (Home Med List Complete!) ASDIRECTED XX 06/23/21 00:10 06/23/21 00:13 DC Hydroxyzine HCl (Atarax) 50 mg STAT STAT PO 06/28/21 16:17 06/28/21 16:20 DC 06/28/21 17:09 Lorazepam (Ativan) 2 mg ASDIRECTED PRN PO SEE PROTOCOL 06/23/21 19:35 Cancel Magnesium Hydroxide (Milk Of Magnesia) 30 ml DAILYPRN PRN PO CONSTIPATION 06/23/21 02:30 Miscellaneous (Unresolved Clarification Entry) SEE LABEL COMMENTS DAILY XX 06/28/21 09:00 Cancel Multivitamins (Theragram-M) 1 tab DAILY PO 06/23/21 09:00 06/30/21 10:00 Olanzapine (ZyPREXA ZYDIS) 5 mg Q6HP PRN PO ANXIETY/AGITATION 06/23/21 09:35 06/26/21 15:13 DC 06/24/21 18:16 Olanzapine (ZyPREXA) 5 mg Q6HP PRN PO Anxiety/agitation 06/23/21 02:30 06/23/21 09:38 DC 06/23/21 04:24 Olanzapine (ZyPREXA) 5 mg QHS PO 06/24/21 21:00 06/26/21 15:13 DC 06/25/21 20:29 Propranolol HCl (Inderal) 10 mg TID PO 06/23/21 09:00 06/23/21 11:45 DC 06/23/21 10:04 Thiamine HCl (Thiamine HCl) 100 mg DAILY PO 06/23/21 09:00 06/30/21 10:00 Trazodone HCl (Desyrel) 50 mg QHSP PRN PO INSOMNIA 06/23/21 02:30 06/29/21 20:11 Allergies Coded Allergies: Cat Dander (Verified Allergy, Unknown, 06/22/21) FISH (Verified Allergy, Unknown, 06/22/21) POLLEN (Verified Allergy, Unknown, 06/22/21) KAYCEE DAMON NP Jun 30, 2021 11:01
--- NOTE | 2021-06-30 11:54 | MHDSPDOC ---
[facility] Discharge Summary Discharge Summary DATE OF ADMISSION: Jun 23, 2021 at 02:30 DATE OF DISCHARGE: June 30, 2021 at 1140 DISCHARGE DIAGNOSES: Schizoaffective Disorder, Bipolar Type Nicotine Use Disorder Alcohol Use Disorder Cannabis Use Disorder Unspecified Anxiety Disorder REASON FOR ADMISSION: Patient is a 35-year-old, Single, Homeless male who was brought on a DCS from [facility] in [place], as he was expressing suicidal thoughts. Patient has been staying in rehabilitation facility for the last two weeks. He developed suicidal thoughts with a plan to electrocute himself. He wanted to put his tongue in an outlet socket. Patient has a long history of mental illness with multiple psychiatric hospitalizations with a diagnosis of bipolar disorder. Also, he has alcohol use disorder. Currently, he complains of depression with severe depressed mood, hopelessness, decreased appetite, and low energy. Patient has a history of imelda, wherein he cannot sit still, keeps walking about, racing thoughts, unable to sleep, pressured speech. Patient also has a history of panic disorder. He has been diagnosed with schizoaffective disorder. PER ED REPORT: Pt states that he has been in rehab/detox & staff from the rehab took him to the ED because he was having SI. Pt admits to with a plan for electrocution (stick his tongue in an outlet). Pt reports a Hx of one suicide attempt via stabbing himself in the stomach "years ago." Per notes from [facility], pt. had a suicide attempt via jumping out of a window in 2006 & two attempts via OD, one in 2010 & one in 2011. Pt reports a Hx of self- harm via burning, but states he has not done it in years. Pt denies HI. Pt reports AH of a commentary running through his head asking him questions. He states that the AH do not tell him to hurt himself or anyone else. Pt c/o depressed mood, anxiety, poor concentration, erratic energy levels, erratic sleep, & erratic appetite. Pt appears highly anxious, with arms & legs shaking. Main stressors are his alcohol use, being in rehab, fights with family members, being homeless, & he is not allowed to see his children much. Pt has a Hx of bipolar d/o, schizoaffective d/o, schizophrenia, depression, & anxiety with no Hx of admissions. Pt reports that he has OP tx in [place]. Pt reports daily alcohol & MJ use. His tox screen was positive for cannabis. Reports feeling Anxious, Depressed and Hopeless/Helpless VITAL SIGNS: See below. CONSULTANTS INVOLVED: See Medical H + P by Hospitalist TREATMENT AND PROGRESS ON THE UNIT: Patient was admitted to the [facility] on a 9.39 legal status was afforded the following treatment modalities: 1) Individual Therapy 2) Group Therapy 3) Medication Management 4) Milieu Therapy 5) Safe Environment HOSPITAL COURSE: Patient was admitted to [facility] on a 9.39 legal status. Patient was restarted on his home medications. Pt found medications beneficial and tolerated them well. Mood, anxiety, and intrusive thoughts improved with treatment. Pt attended groups minimally during stay. He was mostly to himself and not social but was out in the milieu appropriately. He was unkempt and disheveled, preferring to not attend to ADLs unless cued to do so. Patient has some difficulty due to traumatic brain injury. He was not observed with continued suicidal ideation and reported fleeting initially to no ideations today. He was very concerned about returning to [place] for a court date on 07/04/21 but was fearful of returning to the [facility] without housing and this elevated his depressive and suicidal symptoms. Pts symptoms improved with treatment. On day of discharge pt. denied depression, anxiety, insomnia, SI/HI, hallucinations, delusions. Pt was discharged home with follow-up with [facility] in [place], [place]. He is due to his Haldol Decanoate injection on but has an appointment at [facility] on 07/04/21 for his monthly injection. Reviewed with patient the discharge plans and he felt safe for discharge. DISCHARGE ASSESSMENT: In today's interview, patient is alert and oriented, pt.s dress is appropriate. Hygiene and grooming is fair. Is pleasant and engaged in the interview. Denies depression and reports moderate anxiety. Denies suicidal and homicidal ideation, planning or intent. 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 Reinforced with patient need to abstain from alcohol and drugs. At discharge patient has normal mentation, declines further hospitalization on a voluntary status and meets criteria for discharge today. Discussed indications of medications, potential benefits and risks, alternatives (including no treatment) and questions were encouraged and answered. Patient encouraged to r eturn to hospital if symptoms worsen or change and encouraged to call unit if he/she/they needs to speak to provider for questions regarding medications or care. MENTAL STATUS EXAMINATION ON DISCHARGE: Patient is a 35-year-old, Single, Homeless male who was brought on a DCS from [facility] in [place], as he was expressing suicidal thoughts. Speech: Is fluid, conversant, normal rate, tone and volume Language skills are intact Thought processes including: linear and goal oriented Thought content: denies depression and anxiety. Denies suicidal/homicidal ideation, planning or intent. Abstract reasoning, and computation: fair Description of associations: denies, none observed Description of abnormal or psychotic thoughts: denies, none observed. Judgment: fair Insight: fair Orientation: alert and oriented to person, place, time and situation Recent and remote memory: intact Attention span and concentration: good Language: expansive Fund of knowledge: average Mood: Euthymic Mood Affect: reactive Suicide Risk Assessment: 1) Does the patient wish to be ? No 2) Since your admission, have you had any actual thought of killing yourself? No 3) Since your admission, have you been thinking about how you might do this? No 4) Since your admission, have you had these thoughts and had some intention of acting on them? No 5) Since your admission, have you started to work out or worked out the details of how to kill yourself? No 5A) Do you intent to carry out this plan? No and NA 6) Have you ever done anything, started anything, or prepared to do anything with any intent to ? No 6A) How long since your admission did you do any of these? NA MEDICATIONS ON DISCHARGE: See Medication Reconciliation PLAN/FOLLOWUP ARRANGEMENTS: Patient receiving [place] also will return to his previous mental health clinic at [facility] The amount of time spent in the coordination of care for this patient was approximately 25 minutes. ETOH/Disorder Med Rx ETOH/DRUG DISORDER RX: Offrd @ d/c & pt refused Vital Signs/I&Os Vital Signs Date Time Temp Pulse Resp B/P (MAP) Pulse Ox O2 Delivery O2 Flow Rate FiO2 06/30/21 06:29 98.1 50 16 92/60 (71) 97 Room Air Medications Scheduled Benztropine Mesylate (Benztropine Mesylate) 2 Mg Tablet, 2 MG PO BID for EPS for 7 Days, #14 Haloperidol (Haloperidol) 10 Mg Tablet, 10 MG PO QHS for Psychosis for 7 Days, #7 Haloperidol Decanoate (Haldol Decanoate 100) 100 Mg/1 Ml Ampul, 100 MG IM QMONTH, (Reported) Scheduled PRN Hydroxyzine HCl (Hydroxyzine HCl) 50 Mg Tablet, 50 MG PO BIDP PRN for ANXIETY/AGITATION, #14 Trazodone HCl (Trazodone HCl) 50 Mg Tablet, 50 MG PO QHSP PRN for INSOMNIA, #7 Allergies Coded Allergies: Cat Dander (Verified Allergy, Unknown, 06/22/21) FISH (Verified Allergy, Unknown, 06/22/21) POLLEN (Verified Allergy, Unknown, 06/22/21) KAYCEE DAMON NP Jun 30, 2021 11:46
== END 2021-06-30 14:12 | disposition home or self-care (01) | DRG 750 ==
LOC: M ED 20:35 → M ED INP 06-23 02:30 → M PSY 06-23 03:39
PROVIDERS: ADMIT Student in an Organized Health Care Education/Training Program; ATTEND Psychiatry & Neurology Psychiatry
DX: F25.0 Schizoaffective disorder, bipolar type (principal); R45.851 Suicidal ideations; F10.10 Alcohol abuse, uncomplicated; Z59.0 Homelessness; Z91.5 Personal history of self-harm; F12.10 Cannabis abuse, uncomplicated; J45.909 Unspecified asthma, uncomplicated; Z79.899 Other long term (current) drug therapy; F17.210 Nicotine dependence, cigarettes, uncomplicated; Z20.822 Contact with and (suspected) exposure to COVID-19; Z91.013 Allergy to seafood; Z91.09 Other allergy status, other than to drugs and biological substances; F41.9 Anxiety disorder, unspecified